=== PATIENT | female | born 1970 | race Hispanic/Latino ===

== ENCOUNTER → 2025-07-10 | Outpatient (CLI) | payer OTHER ==
--- NOTE | 2025-07-10 18:30 | HMCIMG ---
CLINICAL INFORMATION RA, LACK OF CIRCULATION COMPARISON None. TECHNIQUE 2 view left ankle FINDINGS Bones: Distal fibula and syndesmotic ORIF. Hardware is intact. No new acute fracture. Alignment: Normal. Joints: Mild osteoarthritis. Soft Tissues: Mild diffuse soft tissue swelling. IMPRESSION Distal fibula and syndesmotic ORIF without radiographic complication. Mild diffuse soft tissue swelling. /[place]
== END | disposition home or self-care (01) ==
LOC: RAH 15:44
PROVIDERS: ATTEND Internal Medicine
DX: M19.072 Primary osteoarthritis, left ankle and foot (principal); M06.9 Rheumatoid arthritis, unspecified; M79.89 Other specified soft tissue disorders
CPT/HCPCS: 73600